=== PATIENT | male | born 1945 | race Caucasian/White ===

== ENCOUNTER 2016-08-18 01:16 | Day surgery (SDC) | payer MEDICARE, OTHER ==
[2016-08-18] VITALS (11 sets, daily range): BP systolic 120–140; BP diastolic 67–77; PULSE 68–72; RESP 13–18; O2SAT 93–96
[~2016-08-18 01:16] MED LIST: ALBU18HF INH; ASCO100089 PO; ASPI-973 PO; BECL8.7A6 INHALATION; CHOL200047 PO; CHOL500050 PO; CLOP75TA28 PO; FURO40TA4 PO; LISI-571 PO; METF1000 PO; METO50TA3 PO; MONT10TA23 PO; POTA10CA42 PO; SIMV40TA5 PO; SITA100T12 PO; TAMS0.4C98 PO; UBID1CAP52 PO; aller-tec
[2016-08-18] MEDS ORDERED: 0.9% Sodium Chloride 1,000 ML IV ONE (07:43)
[2016-08-18] MEDS ORDERED: UBID50TA3 PO (11:56)
[2016-08-18] MEDS ORDERED: MAGN100T5 PO (11:56)
[2016-08-18] MEDS ORDERED: ASCO100089 PO (11:56)
[2016-08-18] MEDS ORDERED: Instaflex PO (11:56)
[2016-08-18 13:02] LABS: BASOPHILS % (AUTO) 0.2 % (0-3); EOSINOPHILS % (AUTO) 2.5 % (0-5); MONOCYTES % (AUTO) 9.3 % (4-12); Mean Corpuscular Hemoglobin 30.8 pg (27.0-35.0); Mean Corpuscular Volume 88.9 fL (81-100); NEUTROPHILS % (AUTO) 50.8 % (40-74); Platelet Count 215 bil/L (150-400)
[2016-08-18 13:14] LABS: INR 0.97 ratio
[2016-08-18] MEDS ORDERED: 0.9% Sodium Chloride 1,000 ML ONE ×2 (14:30→15:33)
[2016-08-18] MEDS ORDERED: Nitroglycerin 50,000 mcg/250 mL D5W Premix IV ONE (14:30)
[2016-08-18] MEDS ORDERED: 0.9% Sodium Chloride 500 ML ONE ×2 (14:31→14:38)
[2016-08-18] MEDS ORDERED: Heparin 1,000 Unit/mL 10 mL Inj ONE ×2 (14:31→16:15)
--- NOTE | 2016-08-18 14:38 | NUR ---
REINALDO Patient admitted to [facility] at 1230 for heart catheter. Family at bedside. Patient denies pain. HL X 2 placed and labs obtained. Consent confirmed. History and medications reviewed. Pre procedure teaching done and questions answered. WBC elevated. notified.
[2016-08-18] MEDS ORDERED: fentaNYL-PF 50 mCg/mL 2 mL Inj ONE ×2 (15:21→16:21)
[2016-08-18] MEDS ORDERED: Atropine 1 mg/10 mL (Code) Syringe IVPUSH PRN (17:15)
[2016-08-18] MEDS ORDERED: 0.9% Sodium Chloride 1,000 ML IV PRN (17:15)
[2016-08-18] MEDS ORDERED: 0.9% Sodium Chloride 250 ML IV PRN (17:15)
[2016-08-18] MEDS ORDERED: HYDROcodone-APAP 5-325 mg Tablet PO PRN (17:15)
[2016-08-18] MEDS ORDERED: Ondansetron 2 mg/mL 2 mL Inj IVPUSH PRN (17:15)
--- NOTE | 2016-08-18 18:57 | NUR ---
Received Received from [facility] at 1730. VSS. Right groin stable without bleeding or hematoma. IVF infusing per order. Taking po well. Family at bedside. Monitoring per orders.
--- NOTE | 2016-08-18 20:01 | NUR ---
Discharge Bedrest complete at 1930. VSS. Right groin stable. Up and ambulated in [facility] without change in groin. Discharge instructions given, see sheets. Pt. and verbalize understanding. Ivs discontinued intact. Discharged ambulatory with all belongings in no distress at 2000.
--- NOTE | 2016-08-20 13:37 | CS94 ---
[address] [address] DIAGNOSTIC CARDIAC CATHETERIZATION PATIENT: KEYA DAMIAN : 1945 MR#: [id number] ADMIT: 08/18/2016 JOB ID: [id number] SERVICE DATE: 08/18/2016 PROCEDURE: 1. Retrograde left heart catheterization. 2. Selective left and right coronary angiography 2. Graft angiography. 3. Root angiography. CLINICAL HISTORY: Patient is a delightful, 71-year-old male, who has a known history of coronary artery disease status post bypass surgery. Patient experiencing symptoms of exertional chest discomfort and burning in the back with activity. Most typically, patient's symptoms are brought on with one flight of stairs. Given his history, patient was brought to the [facility] stores for coronary angiography to assess the severity and extent of his coronary artery disease. CONSENT: The patient was explained the risks, benefits, and alternatives of the procedure. Informed consent was obtained and placed in the chart. Before groins were prepped and draped in the usual sterile manner. One percent lidocaine was infiltrated in the right groin area to achieve topical anesthesia. Subsequently, using a standard modified Seldinger technique, a 6-Icelandic arterial sheath was placed in the right femoral artery without any difficulty. An FL4 catheter was advanced and placed in the ostium of the left main coronary artery and multiple views of the left coronary artery were obtained in multiple projections. Subsequently, FR4 catheter was used to engage the right coronary artery. Multiple views of the right coronary artery were obtained in multiple projections. FR4 catheter was used to engage the radial graft to the OM, and graft angiography was performed. Multiple attempts were made to cannulate the saphenous vein graft to the RPDA. Subsequently, I was able to cannulate the saphenous vein graft and graft angiography was performed. Using a standard technique, exchange wire was advanced into the left subclavian artery and exchanged with a DOUGHERTY catheter. Multiple attempts were made to cannulate the left internal mammary artery. Graft angiography was performed. However, the catheter was no co-axial. Therefore there was decreased opacification of the distal graft and the LAD. The imaging was suboptimal. Therefore we decided to proceed with left radial angiography. However, patient has radial graft taken from the left arm. Therefore, the decision was abandoned. At that time, I spoke with the interventional colleague, who suggested that coronary CTA and/or stress testing looking at the anterior wall would be an alternative. At that time, patient had received a significant amount of radiocontrast and it was a prolonged procedure, so the procedure was stopped. Patient was taken out of the cath laboratory in stable condition. No complications were noted. Total fluoro time was 25.4 minutes and total contrast used 250 minutes. FINDINGS: The aortic pressure was recorded at 118/67 with a mean of 89 mmHg. CORONARY ANGIOGRAPHY: The left main coronary artery is a short segment which bifurcates into left anterior descending artery and left circumflex coronary artery. The left anterior descending artery is heavily diffusely calcified in the proximal and mid segments with multiple tandem lesions of significant stenosis. The distal LAD demonstrates compatible flow and there was a mild opacification of the DOUGHERTY graft to the LAD. The diagonal branches arising from the LAD, the first diagonal has no significant disease. The second diagonal and third diagonal are small branches with no significant disease. The septal perforators are noted arising from the LAD which are diffusely diseased and calcified. The left circumflex coronary artery is diffusely diseased with moderate to heavy calcification noted in the proximal part. It gives off a moderate-sized high OM branch, which is again mildly diffusely diseased. In fact, I would not call this as mildly. I would say moderate to severely diffusely diseased. The distal circumflex is not well visualized. The second OM branch is a small vessel. The right coronary artery is diffusely heavily calcified with multiple segments of ectasia and aneurysms. The PDA branch is completely occluded. The posterolateral branch is noted. The acute marginal branch arising from the RCA demonstrates diffuse disease. The radial graft to the OM is visualized. The ostium, body, and anastomosis of the graft are patent, and there is a KATHY-3 flow noted in the obtuse marginal branch. The saphenous vein graft to the PDA appears very healthy. The ostium, body, and the anastomosis of the graft are widely patent. The mid segment of the graft demonstrates ectasia versus aneurysms. Probably there is a valve there. Good KATHY-3 flow noted in the PDA and retrograde flow to the posterolateral branch as well. The DOUGHERTY graft to LAD was partially visualized. IMPRESSION: 1. Severe three-vessel coronary artery disease. 2. Patent saphenous vein graft to the right posterior descending artery. 3. Patent radial graft to obtuse marginal. 4. Left internal mammary artery to left anterior descending graft not well visualized. Suggest alternative imaging. MTDD
== END 2016-08-18 23:59 | disposition home or self-care (01) ==
LOC: SOUO 01:16
PROVIDERS: ATTEND Internal Medicine Cardiovascular Disease
DX: I25.119 Atherosclerotic heart disease of native coronary artery with unspecified angina pectoris (principal); I10 Essential (primary) hypertension; E78.2 Mixed hyperlipidemia; Z79.82 Long term (current) use of aspirin; Z79.02 Long term (current) use of antithrombotics/antiplatelets; Z79.84 Long term (current) use of oral hypoglycemic drugs; E11.9 Type 2 diabetes mellitus without complications
CPT/HCPCS: 36415; 80048; 85025; 85610; 93455; 99152; 99153; C1760; C1769; C1887; J1644; J2250; J3010; J7040; Q9967